=== PATIENT | male | born 1960 | race Two or more races ===

== ENCOUNTER 2022-01-24 13:06 | Emergency (ER) | payer SELFPAY ==
[~2022-01-24] VITALS: Ht 160 cm; Wt 162.4 kg
[2022-01-24] MEDS ORDERED: IV NORMAL SALINE 1000ML BAG 1,000 ML IV ONE (14:00)
[2022-01-24] MEDS ORDERED: diphenhydrAMINE 50 MG/ML VIAL IVP ONE (14:00)
[2022-01-24] MEDS ORDERED: ONDANSETRON PF 4 MG/2 ML VIAL. IVP ONE (14:00)
--- NOTE | 2022-01-24 14:12 | PHYS DOC ---
Past Medical History Past Medical History: No Pertinent History Past Surgical History: No Surgical History Smoking Status: Never Smoker Alcohol Use: None Drug Use: None General Adult EDM: Chief Complaint: HEADACHE HPI: HPI: Patient is a 61-year-old male who presents today with headache, left wrist pain, and right knee pain. Patient is Italian-speaking only and interpretive services was used for the history. Patient states that approximately 2 months ago he was walking in a parking lot and slipped and fell on some ice, he said that when he fell he landed on his bottom and hit his head, he tried to brace himself with his left arm and he believes he twisted his right knee in the fall. Patient states that he has not been evaluated for any of his concerns after his fall until today. Patient states that he continues to have headache, blurred vision in his right eye, nausea, and light sensitivity. 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 Patient states that his left wrist continues to bother him, he currently has a Velcro wrist splint in place, patient also states that his right knee continues to bother him when he walks. Patient is unsure if he had a loss of consciousness, patient does state that he is more forgetful recently and is unable to concentrate. Patient states his last tetanus shot was approximately 1 year ago. Review of Systems: Review of Systems: Constitutional: Denies fever or chills. [] Eyes: Blurred vision right eye denies change in visual acuity. [] HENT: Denies nasal congestion or sore throat. [] Respiratory: Denies cough or shortness of breath. [] Cardiovascular: Denies chest pain or edema. [] GI: Nausea denies abdominal pain, vomiting, bloody stools or diarrhea. [] : Denies dysuria. [] Musculoskeletal: Left wrist and right knee pain Integument: Denies rash. [] Neurologic: Headache, light sensitivity denies focal weakness or sensory changes. [] Endocrine: Denies polyuria or polydipsia. [] Lymphatic: Denies swollen glands. [] Psychiatric: Denies depression or anxiety. [] Heart Score: C/O Chest Pain: No Risk Factors: Risk Factors: DM, Current or recent (<one month) smoker, HTN, HLP, family history of CAD, obesity. Risk Scores: Score 0 - 3: 2.5% MACE over next 6 weeks - Discharge Home Score 4 - 6: 20.3% MACE over next 6 weeks - Admit for Clinical Observation Score 7 - 10: 72.7% MACE over next 6 weeks - Early Invasive Strategies Current Medications: Current Medications Medications (Trade) Dose Ordered Sig/Choa Start Time Stop Time Status Last Admin Dose Admin Diphenhydramine HCl (Benadryl) 25 mg 1X ONCE 01/24/22 14:00 01/24/22 14:01 UNV Ondansetron HCl (Zofran) 4 mg 1X ONCE 01/24/22 14:00 01/24/22 14:01 UNV Sodium Chloride 1,000 ml @ 999 mls/hr 1X ONCE 01/24/22 14:00 01/24/22 15:00 UNV Physical Exam: PE: Constitutional: Well developed, well nourished, no acute distress, non-toxic appearance. [] HENT: Normocephalic, atraumatic, bilateral external ears normal, oropharynx moist, no oral exudates, nose normal. [] Eyes: Right eye PERRLA, EOMI, left eye is atrophied and patient has no vision in the left eye Neck: Normal range of motion, no tenderness, supple, no stridor, no midline tenderness Cardiovascular:Heart rate regular rhythm, no murmur [] Lungs & Thorax: Bilateral breath sounds clear to auscultation [] Abdomen: Bowel sounds normal, soft, no tenderness, no masses, no pulsatile masses. [] Skin: Warm, dry, no erythema, no rash. [] Back: No tenderness, no CVA tenderness. [] Extremities: Left wrist is painful to palpation, pain with range of motion, sensory is intact distal to the pain, cap refills less than 2 seconds radial pulses 2+, low right knee pain with range of motion and palpation, neurovascular intact distal to the injury dorsalis pedis pulse is 2+ Neurologic: Alert and oriented X 3, normal motor function, normal sensory function, no focal deficits noted. [] Psychologic: Affect normal, judgement normal, mood normal. [] Current Patient Data: Labs: Laboratory Tests Test 01/24/22 14:34 01/24/22 15:20 White Blood Count 7.9 x10^3/uL Red Blood Count 4.90 x10^6/uL Hemoglobin 14.9 g/dL Hematocrit 43.4 % Mean Corpuscular Volume 89 fL Mean Corpuscular Hemoglobin 30 pg Mean Corpuscular Hemoglobin Concent 34 g/dL Red Cell Distribution Width 13.2 % Platelet Count 163 x10^3/uL Neutrophils (%) (Auto) 56 % Lymphocytes (%) (Auto) 32 % Monocytes (%) (Auto) 10 % Eosinophils (%) (Auto) 2 % Basophils (%) (Auto) 1 % Neutrophils # (Auto) 4.4 x10^3/uL Lymphocytes # (Auto) 2.5 x10^3/uL Monocytes # (Auto) 0.8 x10^3/uL Eosinophils # (Auto) 0.1 x10^3/uL Basophils # (Auto) 0.1 x10^3/uL Sodium Level 139 mmol/L Potassium Level 4.5 mmol/L Chloride Level 105 mmol/L Carbon Dioxide Level 28 mmol/L Anion Gap 6 Blood Urea Nitrogen 19 mg/dL Creatinine 0.9 mg/dL Estimated GFR (Cockcroft-Gault) 85.2 BUN/Creatinine Ratio 21 Glucose Level 115 mg/dL Calcium Level 9.0 mg/dL Total Bilirubin 0.6 mg/dL Aspartate Amino Transf (AST/SGOT) 21 U/L Alanine Aminotransferase (ALT/SGPT) 32 U/L Alkaline Phosphatase 65 U/L Troponin I High Sensitivity 6 ng/L Total Protein 7.6 g/dL Albumin 4.1 g/dL Albumin/Globulin Ratio 1.2 Urine Collection Type Unknown Urine Color (Auto) Light yellow Urine Turbidity Clear Urine pH (Auto) 7.0 Urine Specific Clements 1.014 Urine Protein (Auto) Negative mg/dL Urine Glucose (Auto)(UA) Negative mg/dL Urine Ketones (Auto) Negative mg/dL Urine Blood (Auto) Negative Urine Nitrite Negative Urine Bilirubin (Auto) Negative Urine Urobilinogen (Auto) Normal mg/dL Urine Leukocyte Esterase (Auto) Negative Urine RBC 0 /HPF Urine WBC 1-4 /HPF Urine Squamous Epithelial Cells Few /LPF Urine Bacteria 0 /HPF Current Medications Medications (Trade) Dose Ordered Sig/Chao Route PRN Reason Start Time Stop Time Status Last Admin Dose Admin Sodium Chloride 1,000 ml @ 999 mls/hr 1X ONCE IV 01/24/22 14:00 01/24/22 15:00 DC 01/24/22 14:15 Diphenhydramine HCl (Benadryl) 25 mg 1X ONCE IVP 01/24/22 14:00 01/24/22 14:55 DC 01/24/22 15:00 Ondansetron HCl (Zofran) 4 mg 1X ONCE IVP 01/24/22 14:00 01/24/22 14:55 DC 01/24/22 15:00 Iohexol (Omnipaque 300 Mg/ml) 75 ml 1X ONCE IV 01/24/22 15:45 01/24/22 15:46 DC 01/24/22 15:56 Info (CONTRAST GIVEN -- Rx MONITORING) 1 each PRN DAILY PRN MC SEE COMMENTS 01/24/22 15:45 01/26/22 15:44 Vital Signs: Vital Signs Date Time Temp Pulse Resp B/P (MAP) Pulse Ox O2 Delivery O2 Flow Rate FiO2 01/24/22 13:12 98.2 86 24 164/87 (112) 94 Room Air 98.2 EKG: EKG: EKG done at [address] Blas at 1425 shows sinus rhythm no ectopy at a rate of 69 with a QTC of 389, no STEMI [] Radiology/Procedures: Radiology/Procedures: REASON: fall with knee pain PROCEDURE: WRIST 3V LEFT EXAMINATION: XR LT WRIST 3VIEWS. HISTORY: 61 years Male Reason: fall with left wrist and knee pain COMPARISON: None. FINDINGS: No fracture, dislocation or radiopaque foreign body. Advanced degenerative changes are seen at the carpometacarpal joint at the base of the thumb with the remodeling and subluxation at the joint suggested. IMPRESSION: Degenerative changes. No fracture. Electronically signed by: Fish Villa MD (01/24/2022 3:22 PM) [id number] REASON: fall with knee pain PROCEDURE: KNEE RIGHT 4V EXAMINATION: XR KNEE 4 VIEWS WITH PATELLA_RT. HISTORY: 61 years Male Reason: fall with knee pain / Spl. Instructions: / History: . COMPARISON: None. FINDINGS: No fracture, dislocation or radiopaque foreign body. Degenerative changes at the knee with the marginal osteophytes are noted. There is moderate joint space narrowing in the medial compartment. No significant the suprapatellar effusion. IMPRESSION: Degenerative changes. No fracture. Electronically signed by: Fish Villa MD (01/24/2022 3:24 PM) [id number] REASON: FELL 2 MONTHS AGO, HEADACHE, N/V PROCEDURE: CT HEAD AND CERVICAL SPINE WO EXAM: CT HEAD WITHOUT IV CONTRAST CLINICAL HISTORY: Reason: FELL 2 MONTHS AGO, HEADACHE, N/V / Spl. Instructions: / History: COMPARISON: None. TECHNIQUE: Routine CT of the head without contrast. Soft tissues and bone windows were reviewed. PQRS compliance statement - One or more of the following individualized dose reduction techniques were utilized for this study: 1. Automated exposure control 2. Adjustment of the mA and/or kV according to patient size 3. Use of iterative reconstruction technique FINDINGS: There is no evidence of hemorrhage, mass or extra-axial fluid collection. Koroma-white differentiation is maintained with no evidence of edema. Subcortical and periventricular foci of white matter hypoattenuation likely changes of chronic small vessel disease. There is no mass effect or shift of the intracranial structures. The ventricles, basilar cisterns and cortical sulci are normal in size and configuration for the patients stated age. The cerebellum and brainstem are unremarkable. The calvarium demonstrates no evidence of fracture or focal lesion. There is normal aeration of the visualized paranasal sinuses and mastoid air cells. Phthisis bulbi left globe. IMPRESSION: No evidence for acute intracranial process. White matter changes likely chronic small vessel disease. EXAM: CT CERVICAL SPINE WITHOUT IV CONTRAST CLINICAL HISTORY: Reason: FELL 2 MONTHS AGO, HEADACHE, N/V / Spl. Instructions: / History: COMPARISON: None available. TECHNIQUE: Helical CT of the cervical spine was performed. Axial, coronal and sagittal reformatted images were also performed. PQRS compliance statement - One or more of the following individualized dose reduction techniques were utilized for this study: 1. Automated exposure control 2. Adjustment of the mA and/or kV according to patient size 3. Use of iterative reconstruction technique FINDINGS: Vertebral body heights are preserved. Straightening of the normal cervical lordosis. There is mild C3-4, C4-5, C5-6 and moderate C6-7 disc height loss. Small posterior disc osteophyte complexes at these level. No spondylolisthesis. 2.1 cm left thyroid nodule is seen. IMPRESSION: 1. No acute cervical spine fracture or subluxation. 2. The thyroid nodule measures approximately 2.1 cm and can be further assessed by thyroid ultrasound. 3. Multilevel degenerative changes of the cervical spine as above. Electronically signed by: Roger Velez MD (01/24/2022 3:57 PM) [facility] DICTATED and SIGNED BY: ROGER VELEZ MD REASON: FELL 2 MONTHS AGO, HEADACHE, N/V PROCEDURE: CT CHEST ABD PELVIS W/CONTRAST Exam: CT chest, abdomen and pelvis with contrast INDICATION: Headache fall 2 months ago TECHNIQUE: Sequential axial images through the chest, abdomen and pelvis ob tained following the administration of 75 mL of Omni 300 IV contrast. Sagittal and coronal reformatted images were reconstructed from the axial data and reviewed. Exposure: One or more of the following in the visualized dose reduction techniques were utilized for this examination: 1. Automated exposure control 2. Adjustment of the MA and/or KV according to patient size 3. Use of iterative of reconstructive technique Comparisons: None FINDINGS: Heterogenous appearance of the thyroid with a nodule at the lower pole of the left thyroid lobe measuring approximately 2.7 cm. No enlarged mediastinal lymph nodes. Heart size is normal. No pericardial effusion. Thoracic aorta has a normal course and caliber. Pulmonary artery is not enlarged. Airways are patent. No consolidation or pneumothorax. No suspicious lung nodules. No pleural effusion or thickening. Mild diffuse hepatic steatosis. Spleen, pancreas, gallbladder and adrenals are unremarkable. No perinephric inflammation or hydronephrosis. No renal or ureteral calculi are identified. Bladder is partially distended and not well evaluated. Cystic lesion at the left adnexa which measures up to 3 cm in long axis. Diverticulosis noted at the sigmoid colon without evidence of acute diverticulitis. Small bowel is unremarkable. No free intra-abdominal air or fluid. No obstruction. Abdominal aorta has normal course and caliber. Abdominal vasculature is patent. No enlarged intra-abdominal lymph nodes are identified. No suspicious osseous lesions or acute fractures. IMPRESSION: 1. No sequela of acute traumatic injury identified within the chest, abdomen or pelvis. 2. Mild diffuse hepatic steatosis Electronically signed by: Suzi Hassan MD (01/24/2022 4:23 PM) [facility] [] Course & Med Decision Making: Course & Med Decision Making Pertinent Labs and Imaging studies reviewed. (See chart for details) 1640 using interpretive services I reviewed radiological and laboratory results with patient, did inform him there was no acute findings on any of the studies that were performed today, patient has postconcussive symptoms that will resolve over time, patient will be given the [facility] information regarding postconcussive syndrome and will also be given the name of Dr. Fraire neurology for further evaluation and management of postconcussive syndrome. Patient is instructed to take Tylenol and/or ibuprofen as needed for pain. Patient verbalized understanding of the discharge instructions using interpretive services and is agreeable to the plan of care. Dragon Disclaimer: Dragon Disclaimer: This electronic medical record was generated, in whole or in part, using a voice recognition dictation system. Departure Departure Impression: Primary Impression: Post concussion syndrome Additional Impressions: Headache Qualified Codes: R51.9 - Headache, unspecified Knee pain, right Qualified Codes: M25.561 - Pain in right knee Left wrist sprain Qualified Codes: S63.502A - Unspecified sprain of left wrist, initial encounter Disposition: HOME / SELF CARE / HOMELESS Condition: STABLE Referrals: NO PCP (PCP) WHIT ESCALANTE MD Patient Instructions: Concussion and Brain Injury, Knee Pain, Wrist Sprain with Rehab[facility] Additional Instructions: [id number] Tylenol and/or ibuprofen as needed for pain Zay wrap to right knee for discomfort Wear Velcro wrist splint that you have for your pain in your left wrist Ice 20 minutes on 3-4 times daily to your knee or wrist to help with localized pain relief Follow-up with Dr. Fraire or your primary care physician or one of the listed clinics below for further evaluation and management for all of your concerns. Return to the emergency department if you develop slurred speech, unable to see out of your right eye, unable to use 1 side your body, or any other concerns you may have. [facility] [address] [place] [address] [facility] [address] [place] [address] [facility] [address] [facility] [place] [address] [facility] [address] [address] [facility] [address] [place] [address] [address] [address] [place] [address] [facility] [address] [place] [address] [facility] [address] [place] [address] [facility] [address] [place] [address] [facility] Department [address] [place] [address] ISIDRO SEGURA APRN Jan 24, 2022 14:12
[2022-01-24 14:49] LABS: BASO # 0.1 x10^3/uL (0.0-0.2); BASO % 1 % (0-3); EOS # 0.1 x10^3/uL (0.0-0.7); EOS % 2 % (0-3); HEMATOCRIT 43.4 % (39.0-53.0); HEMOGLOBIN 14.9 g/dL (13.0-17.5); LYMPH # 2.5 x10^3/uL (1.0-4.8); LYMPH % 32 % (24-48); MEAN CORPUSCULAR HEMOGLOBIN 30 pg (25-35); MEAN CORPUSCULAR HGB CONC 34 g/dL (31-37); MEAN CORPUSCULAR VOLUME 89 fL (79-100); MONO # 0.8 x10^3/uL (0.0-1.1); MONO % 10 % (0-9); NEUT # 4.4 x10^3/uL (1.8-7.7); NEUT % 56 % (31-73); PLATELET COUNT 163 x10^3/uL (140-400); RED CELL DISTRIBUTION WIDTH 13.2 % (11.5-14.5); WHITE BLOOD COUNT 7.9 x10^3/uL (4.0-11.0)
[2022-01-24 15:01] LABS: CREATININE 0.9 mg/dL (0.7-1.3); GFR 85.2; POTASSIUM 4.5 mmol/L (3.5-5.1)
[2022-01-24 15:07] LABS: ALBUMIN 4.1 g/dL (3.4-5.0); ALBUMIN/GLOBULIN RATIO 1.2 (1.0-1.7); TOTAL BILIRUBIN 0.6 mg/dL (0.2-1.0); TOTAL PROTEIN 7.6 g/dL (6.4-8.2)
--- NOTE | 2022-01-24 15:25 | RAD ---
EXAMINATION: XR LT WRIST 3VIEWS. HISTORY: 61 years Male Reason: fall with left wrist and knee pain COMPARISON: None. FINDINGS: No fracture, dislocation or radiopaque foreign body. Advanced degenerative changes are seen at the carpometacarpal joint at the base of the thumb with the remodeling and subluxation at the joint sugg ested. IMPRESSION: Degenerative changes. No fracture. Electronically signed by: Fish Villa MD (01/24/2022 3:22 PM) [email or web address]
--- NOTE | 2022-01-24 15:27 | RAD ---
EXAMINATION: XR KNEE 4 VIEWS WITH PATELLA_RT. HISTORY: 61 years Male Reason: fall with knee pain / Spl. Instructions: / History: . COMPARISON: None. FINDINGS: No fracture, dislocation or radiopaque foreign body. Degenerative changes at the knee with the mar ginal osteophytes are noted. There is moderate joint space narrowing in the medial compartment. No si gnificant the suprapatellar effusion. IMPRESSION: Degenerative changes. No fracture. Electronically signed by: Fish Villa MD (01/24/2022 3:24 PM) [email or web address]
[2022-01-24] MEDS ORDERED: CONTRAST GIVEN. MC PRN (15:45)
[2022-01-24] MEDS ORDERED: IOHEXOL 300 MG/ML 100ML VIAL. IV ONE (15:45)
[2022-01-24 15:50] LABS: BACTERIA,URINE 0 /HPF (0-FEW); RBC,URINE 0 /HPF (0-2)
--- NOTE | 2022-01-24 16:00 | RAD ---
EXAM: CT HEAD WITHOUT IV CONTRAST CLINICAL HISTORY: Reason: FELL 2 MONTHS AGO, HEADACHE, N/V / Spl. Instructions: / History: COMPARISON: None. TECHNIQUE: Routine CT of the head without contrast. Soft tissues and bone windows were reviewed. PQRS compliance statement - One or more of the following individualized dose reduction techniques wer e utilized for this study: 1. Automated exposure control 2. Adjustment of the mA and/or kV according to patient size 3. Use of iterative reconstruction technique FINDINGS: There is no evidence of hemorrhage, mass or extra-axial fluid collection. Koroma-white differentiation is maintained with no evidence of edema. Subcortical and periventricular f oci of white matter hypoattenuation likely changes of chronic small vessel disease. There is no mass effect or shift of the intracranial structures. The ventricles, basilar cisterns and cortical sulci are normal in size and configuration for the daryl ents stated age. The cerebellum and brainstem are unremarkable. The calvarium demonstrates no evidence of fracture or focal lesion. There is normal aeration of the visualized paranasal sinuses and mastoid air cells. Phthisis bulbi left globe. IMPRESSION: No evidence for acute intracranial process. White matter changes likely chronic small vessel disease. EXAM: CT CERVICAL SPINE WITHOUT IV CONTRAST CLINICAL HISTORY: Reason: FELL 2 MONTHS AGO, HEADACHE, N/V / Spl. Instructions: / History: COMPARISON: None available. TECHNIQUE: Helical CT of the cervical spine was performed. Axial, coronal and sagittal reformatted im ages were also performed. PQRS compliance statement - One or more of the following individualized dose reduction techniques wer e utilized for this study: 1. Automated exposure control 2. Adjustment of the mA and/or kV according to patient size 3. Use of iterative reconstruction technique FINDINGS: Vertebral body heights are preserved. Straightening of the normal cervical lordosis. There is mild C3 -4, C4-5, C5-6 and moderate C6-7 disc height loss. Small posterior disc osteophyte complexes at these level. No spondylolisthesis. 2.1 cm left thyroid nodule is seen. IMPRESSION: 1. No acute cervical spine fracture or subluxation. 2. The thyroid nodule measures approximately 2.1 cm and can be further assessed by thyroid ultrasoun d. 3. Multilevel degenerative changes of the cervical spine as above. Electronically signed by: Roger Ackerman MD (01/24/2022 3:57 PM) [facility]
--- NOTE | 2022-01-24 16:26 | RAD ---
Exam: CT chest, abdomen and pelvis with contrast INDICATION: Headache fall 2 months ago TECHNIQUE: Sequential axial images through the chest, abdomen and pelvis obtained following the admin istration of 75 mL of Omni 300 IV contrast. Sagittal and coronal reformatted images were reconstructe d from the axial data and reviewed. Exposure: One or more of the following in the visualized dose reduction techniques were utilized for this examination: 1. Automated exposure control 2. Adjustment of the MA and/or KV according to patient size 3. Use of iterative of reconstructive technique Comparisons: None FINDINGS: Heterogenous appearance of the thyroid with a nodule at the lower pole of the left thyroid lobe measu ring approximately 2.7 cm. No enlarged mediastinal lymph nodes. Heart size is normal. No pericardial effusion. Thoracic aorta has a normal course and caliber. Pulmon malia artery is not enlarged. Airways are patent. No consolidation or pneumothorax. No suspicious lung nodules. No pleural effusion or thickening. Mild diffuse hepatic steatosis. Spleen, pancreas, gallbladder and adrenals are unremarkable. No perinephric inflammation or hydronephrosis. No renal or ureteral calculi are identified. Bladder is partially distended and not well evaluated. Cystic lesion at the left adnexa which measure s up to 3 cm in long axis. Diverticulosis noted at the sigmoid colon without evidence of acute diverticulitis. Small bowel is un remarkable. No free intra-abdominal air or fluid. No obstruction. Abdominal aorta has normal course and caliber. Abdominal vasculature is patent. No enlarged intra-abdominal lymph nodes are identified. No suspicious osseous lesions or acute fractures. IMPRESSION: 1. No sequela of acute traumatic injury identified within the chest, abdomen or pelvis. 2. Mild diffuse hepatic steatosis Electronically signed by: Suzi Hassan MD (01/24/2022 4:23 PM) [facility]
[2022-01-24 17:43] VITALS: BP 165/82
--- NOTE | 2022-01-25 08:02 | EKG ---
[facility] [address] [place] [address] Test Date: 2022-01-24 Test Time: 14:21:23 Pat Name: GINO HARLEY Department: Room: Gender: M Bedspread Folder: : 1960 Requested By: ISIDRO SEGURA Order Number: [id number] Reading MD: Measurements Intervals [place] Rate: 69 P: AL: QRS: 31 QRSD: 90 T: 42 QT: 362 QTc: 389 Interpretive Statements ATRIAL FLUTTER ABNORMAL ECG RI6.02 No previous ECG available for comparison
== END 2022-01-24 17:52 | disposition home or self-care (01) ==
LOC: ER 13:06
DX: S63.502A Unspecified sprain of left wrist, initial encounter (principal); F07.81 Postconcussional syndrome; R51.9 Headache, unspecified; M25.561 Pain in right knee; H53.8 Other visual disturbances; M25.532 Pain in left wrist; W00.0XXA Fall on same level due to ice and snow, initial encounter; Y93.01 Activity, walking, marching and hiking; Y92.89 Other specified places as the place of occurrence of the external cause; Y99.8 Other external cause status
CPT/HCPCS: 36415; 70450; 71260; 72125; 73120; 73564; 74177; 80053; 81001; 84484; 85025; 93005; 96361; 96374; 96375; 99285; J1200; J2405; J7030; Q9967